=== PATIENT | female | born 1980 | race Caucasian/White ===

== ENCOUNTER 2025-06-17 14:49 | Outpatient (AMB) | payer BC, SELFPAY ==
--- NOTE | 2025-06-17 14:51 | MHC.PC.OV ---
Vital Signs 06/17/25 14:54 Height 5 ft 2.75 in Weight 120 lb BMI 21.4 BP 102/68 Blood Pressure Location Lt brachial Position Sitting Respiration 16 Pulse 68 Pulse Source Pulse Oximeter Temp 97.3 F Temp Source Temporal Artery Scan Pulse Oximetry (%) 99 Oxygen Delivery Method Room Air Intake Visit Reasons: ROUTINE - see comments, annual physical Roast Master Required: No Accompanied by: Self / Same As Patient Allergies No Known Allergies Allergy (Verified 06/17/25 14:54) Medication List - Last Reconciled 06/17/25 by Margie Solis MD bupropion HCl XL 150 mg PO DAILY Tobacco use date assessed: 06/17/25 Dental Screening Dental Screen Date: 06/17/25 Did you have a dental visit in the last 12 months?: Yes Did you have a dental problem in the last 6 months where you did not have access to dental care?: No Was dental information given to patient?: Patient has dentist HPI HPI Comments History of Present Illness Details The patient is a 44-year-old female presenting for a physical exam. Depression/Anxiety: The patient has a history of depression, which is currently managed on a minimal dose of medication. She acknowledges this is a sensitive time of year due to seasonal changes and prefers to continue her medication, noting it she finds it helpful. Hordeolum: The patient reports a current stye on her right lower eyelid and states she is susceptible to them. She has been using warm compresses and is aware of a previous recommendation from an grout machine operator to use baby shampoo for lid hygiene. She has a history of using eyelash extensions, which she no longer does, and now wears mascara infrequently. Preventative Care: The patient completed a colonoscopy earlier this year at [facility]. She needs to establish with a new CLINICAL DATA MANAGEMENT DIRECTOR because her old CLINICAL DATA MANAGEMENT DIRECTOR's office closed. Diagnostic Results: - Colonoscopy: Normal, performed this year per patient report - breast MRI - normal, family history of breast cancer [facility] Medical History (Updated 06/17/25 @ 17:30 by Margie Solis MD) Depression with anxiety Genital herpes simplex type 2 Generalized anxiety disorder Depression Routine adult health maintenance Surgical History (Updated 06/17/25 @ 17:22 by Margie Solis MD) H/O wisdom tooth extraction History of section H/O LEEP Family History (Updated 06/17/25 @ 17:24 by Margie Solis MD) Mother Hyperlipidemia, unspecified Paternal Grandfather Heart attack Maternal Grandmother Diabetes mellitus type 2 in nonobese Maternal Aunt Breast cancer Sister FH: mental illness Other Osteoporosis Social History Housing: House Patient Tobacco Use Status: Never used Tobacco e-Cigarette/Vaping Use: Never Used service: No Current occupational status: employed Current occupation: [employer] Supervisor Questionnaire PHQ-9 Over the last 2 weeks, how often have you been bothered by any of the following problems? 1. Little interest or pleasure in doing things: not at all 2. Feeling down, depressed, or hopeless: not at all 3. Trouble falling or staying asleep, or sleeping too much: not at all 4. Feeling tired or having little energy: not at all 5. Poor appetite or overeating: not at all 6. Feeling bad about yourself - or that you are a failure or have let yourself or your family down: not at all 7. Trouble concentrating on things, such as reading the newspaper or watching television: not at all 8. Moving or speaking so slowly that other people could have noticed. Or the opposite - being so fidgety or restless that you have been moving around a lot more than usual: not at all 9. Thoughts that you would be better off or of hurting yourself in some way: not at all Total score: 0 Depression Screening Interpretation: Negative Depression Screening Done: Yes 05620 - PHQ-9 Billing: Yes Source: Developed by Drs. Eder Lundberg, Lena Johnston, Toni Gilbert and colleagues, with an educational lila from [employer]. AUDIT C Alcohol Use Questionnaire (AUDIT-C) 1. How often do you have a drink containing alcohol?: Monthly or less 2. How many drinks containing alcohol do you have on a typical day when you are drinking?: 1 or 2 3. How often do you have six or more drinks on one occasion?: Never Total Score: 1 Review of Systems Narrative Review of Systems - Eyes: Reports a current stye on the right eye. - Cardiovascular: no chest pain - Resp: no sob - Psychiatric: Reports feeling sensitive to seasonal changes. Physical exam (Primary Care) Vital Signs: Last Vital Signs Temp 97.3 F 06/17/25 14:54 Pulse 68 06/17/25 14:54 Resp 16 06/17/25 14:54 BP 102/68 06/17/25 14:54 Pulse Ox 99 06/17/25 14:54 Oxygen Delivery Method Room Air 06/17/25 14:54 BMI result Body Mass Index 21.4 Tobacco/Smoking Status: Tobacco use Status Tobacco use date assessed 06/17/25 06/17/25 14:54 Patient Tobacco Use Status Never used Tobacco 06/17/25 14:57 e-Cigarette/Vaping Use Never Used 06/17/25 14:57 PHQ-9: PHQ-9 Score PHQ-9: Total score 0 06/17/25 15:53 Depression Screening Interpretation: Negative Narrative Physical Exam - Eyes: Hordeolum present on the right lower eyelid. - Ears: Canals are clear with no cerumen. - Oropharynx: Clear. - Neck: No cervical or supraclavicular lymphadenopathy. - Lungs: Clear to auscultation bilaterally, no wheezing. - Cardiovascular: Normal rate and rhythm with a subtle murmur. Carotids are without bruits. - Abdomen: Soft, non-tender, non-distended with normoactive bowel sounds. - Extremities: No swelling. - Lymphatic: No cervical or supraclavicular lymphadenopathy Coding Level of Care Code Est Pt Prev Care 40-64y(10337) Diagnoses Routine adult health maintenance Z00.00 Depression with anxiety F41.8 Additional Codes PHQ-9 - 83328 - PHQ-9 Billing: Yes ([id number]) Assessment & Plan Assessment & Plan (1) Routine adult health maintenance: Code(s): Z00.00 - Encounter for general adult medical examination without abnormal findings Category: Medical (2) Depression with anxiety: Code(s): F41.8 - Other specified anxiety disorders Category: Medical Plan Assessment and Plan 1. Annual Physical Exam - The patient is a healthy 44-year-old female presenting for a well visit. - The plan is to obtain fasting labs, including a CBC, CMP, lipid panel, and TSH 2. Depression - continue wellbutrin 3. Hordeolum, right eye - The patient has a stye on her right lower lid. - She will continue with conservative care, including warm compresses and lid hygiene. - A prescription for a 7-day course of doxycycline will be provided if needed 5. Follow up in 1 year for physical Plan - Orders will be placed for fasting labs, to include a CBC, CMP, lipid panel, and TSH. - The patient was advised to continue warm compresses for the stye on her right eye. If no improvement can call for a prescription for a 7-day course of doxycycline Patient Instructions - A 90-day refill of your antidepressant medication has been sent to your pharmacy. - Please go for fasting blood work. You must fast for 8 to 10 hours before the test. You can have water or black coffee. - For the stye on your eyelid, continue to apply warm compresses. Orders: Orders Complete Blood Count Auto Diff Today Z00.00 - Encounter for general adult medical examination without abnormal findings Comprehensive Met. Panel Today Z00.00 - Encounter for general adult medical examination without abnormal findings Lipid Panel Today Z00.00 - Encounter for general adult medical examination without abnormal findings TSH reflex Free T4 Today Z00.00 - Encounter for general adult medical examination without abnormal findings Medications: New bupropion HCl XL 150 mg PO DAILY 90 tabs 3RF
[2025-06-17 14:54] VITALS: BP 102/68; PULSE 68; RESP 16; TEMP 36.3; O2SAT 99; BMI 21.4
== END 2025-06-17 15:34 | disposition home or self-care (01) ==
LOC: HO.HMCHD 14:50
PROVIDERS: PCP Internal Medicine; Visit Provider Internal Medicine
DX: Z00.00 Encounter for general adult medical examination without abnormal findings (principal); F41.8 Other specified anxiety disorders

== ENCOUNTER → 2025-06-17 14:49 | Outpatient (BNVA) | payer BC, SELFPAY | PROVIDERS: PCP Internal Medicine; Visit Provider Internal Medicine | DX: Z00.00 Encounter for general adult medical examination without abnormal findings (principal); F41.8 Other specified anxiety disorders | CPT/HCPCS: 96127 ==

== ENCOUNTER 2025-06-24 15:37 | Outpatient (REF) | payer BC, SELFPAY ==
[2025-06-24 18:16] LABS: MANUAL DIFF FLAG NO
[2025-06-24 18:31] LABS: Hematocrit 36.6 % (37.0-47.0); Hemoglobin 12.0 g/dl (12.0-16.0); Imm Gran Abs Auto 0.02 X10*3/uL (0.00-0.03); Imm Gran Pct Auto 0.4 % (0.0-0.4); Lymphocytes Absolute Auto 1.9 X10*3/uL (1.2-4.9); Mean Corpuscular HGB Conc 32.8 g/dl (31.0-35.0); Mean Corpuscular Hemoglobin 31.8 pg (27.0-33.0); Mean Corpuscular Volume 97.1 fL (80.0-98.0); NRBC Abs Auto 0.000 X10*3/uL (0.0-0.012); NRBC Pct Auto 0.0 /100WBC (0.0-0.2); Platelet Count 213 X10*3/uL (160-400); Red Blood Count 3.77 X10*6/uL (4.20-5.50); White Blood Count 5.7 X10*3/uL (4.8-10.8)
[2025-06-24 18:54] LABS: Alanine Aminotransferase 17 U/L (0-31); Albumin Level 4.4 g/dL (3.5-5.0); Alkaline Phosphatase 45 U/L (39-117); Anion Gap 9 (12-20); Aspartate Amino Transferase 27 U/L (5-31); Blood Urea Nitrogen 9 mg/dL (9-16); Calcium 8.7 mg/dL (8.4-10.2); Carbon Dioxide 28 mmol/L (22-29); Chloride 104 mmol/L (96-108); Cholesterol 149 mg/dL (<200); Estimated Glomerular Filt Rate > 60; HDL Cholesterol 66 mg/dL (>40); Potassium 3.5 mmol/L (3.3-5.1); Sodium 137 mmol/L (135-145); Total Protein 6.9 g/dL (6.5-8.0); Triglycerides 39 mg/dL (<150)
== END 2025-06-24 15:38 | disposition home or self-care (01) ==
LOC: HO.HKASLDS 15:37
PROVIDERS: PCP Internal Medicine; Visit Provider Internal Medicine
DX: Z00.00 Encounter for general adult medical examination without abnormal findings (principal); Z13.6 Encounter for screening for cardiovascular disorders; Z13.29 Encounter for screening for other suspected endocrine disorder; Z13.0 Encounter for screening for diseases of the blood and blood-forming organs and certain disorders involving the immune mechanism
CPT/HCPCS: 36415; 80053; 80061; 84443; 85025

== ENCOUNTER 2025-07-01 08:10 | Outpatient (REF) | payer BC, SELFPAY ==
[2025-07-01 14:04] LABS: Iron 118 mcg/dL (30-160); Percent Iron Saturation 51 % (15-50); Total Iron Binding Capacity 231 mcg/dL (228-428); Unsaturated Iron Binding 113 ug/dL
[2025-07-01 14:08] LABS: Ferritin 13 ng/mL (10-250)
== END 2025-07-01 08:11 | disposition home or self-care (01) ==
LOC: HO.HKASLDS 08:10
PROVIDERS: PCP Internal Medicine; Visit Provider Internal Medicine
DX: D64.9 Anemia, unspecified (principal)
CPT/HCPCS: 36415; 82728; 83540